=== PATIENT | male | born 1985 | race African-American/Black ===

== ENCOUNTER 2017-07-27 08:44 | Inpatient (IN) | payer OTHER ==
[2017-07-27 09:20] VITALS: BMI 23.7
--- NOTE | 2017-07-27 09:57 | HP ---
CIWA Score - CIWA Score Nausea/Vomitin Muscle Tremors: 3 Anxiety: 3 Agitation: 3 Paroxysmal Sweats: 2 Orientation: 0-Oriented Tacttile Disturbances: 2-Mild Itch/Numbness/Burn Auditory Disturbances: 2-Mild Harshness/Frighten Visual Disturbances: 2-Mild Sensitivity Headache: 2-Mild CIWA-Ar Total Score: 22 Admission ROS BHS - HPI Chief Complaint: I NEED HELP TO STOP DRINKING ALCOHOL Allergies/Adverse Reactions: Allergies Allergy/AdvReac Type Severity Reaction Status Date / Time iodine Allergy Severe Swelling Verified 07/27/17 09:26 shellfish derived Allergy Severe Difficulty Verified 07/27/17 09:26 Breathing History of Present Illness: THIS 32 YEARS OLD LACK MALE WITH ALCOHOL DEPENDENCE,SEEKING DETOX,WITHDRAWAL SYMPTOM,LAST DETOX 06/22/17 [facility] LOW BACK PAIN NICOTINE DEPENDENCE LONGEST PERIOD OF SOBRIETY 3 YEARS Exam Limitations: No Limitations - Ebola screening Have you traveled outside of the country in the last 21 days: No Have you been sick,other than usual withdrawal symptoms: No - Review of Systems Constitutional: Loss of Appetite, Malaise, Night Sweats, Changes in sleep, Weakness EENT: reports: Nose Congestion Respiratory: reports: No Symptoms reported Cardiac: reports: Palpitations GI: reports: Diarrhea, Nausea, Vomiting, Abdominal cramping : reports: No Symptoms Reported Musculoskeletal: reports: Back Pain, Muscle Pain Integumentary: reports: Dryness Neuro: reports: Headache, Tremors Endocrine: reports: No Symptoms Reported Hematology: reports: No Symptoms Reported Psychiatric: reports: No Sypmtoms Reported Patient History - Patient Medical History Hx Anemia: No Hx Asthma: No Hx Chronic Obstructive Pulmonary Disease (COPD): No Hx Cancer: No Hx Cardiac Disorders: No Hx Congestive Heart Failure: No Hx Hypertension: No Hx Hypercholesterolemia: No Hx Pacemaker: No HX Cerebrovascular Accident: No Hx Seizures: No Hx Dementia: No Hx Diabetes: No Hx Gastrointestinal Disorders: No Hx Liver Disease: No Hx Genitourinary Disorders: No Hx Sexually Transmitted Disorders: No Hx Renal Disease (ESRD): No Hx Thyroid Disease: No Hx Human Immunodeficiency Virus (HIV): No (LAST 2013 NEGATIVE) Hx Hepatitis C: No Hx Depression: No Hx Suicide Attempt: No Hx Bipolar Disorder: No Hx Schizophrenia: No Other Medical History: NO SUICIDAL,NO HOMICIDAL - Patient Surgical History Past Surgical History: No Hx Neurologic Surgery: No Hx Cataract Extraction: No Hx Cardiac Surgery: No Hx Lung Surgery: No Hx Breast Surgery: No Hx Breast Biopsy: No Hx Abdominal Surgery: No Hx Appendectomy: No Hx Cholecystectomy: No Hx Genitourinary Surgery: No Hx Section: No Hx Orthopedic Surgery: No Anesthesia Reaction: No - PPD History Previous Implant?: No Documented Results: Negative w/o proof Implanted On Prior [facility] Admission?: Yes Date: 02/09/15 Results: 0 mm PPD to be Administered?: Yes - Smoking Cessation Smoking history: Current every day smoker Have you smoked in the past 12 months: Yes Aproximately how many cigarettes per day: 10 Hx Chewing Tobacco Use: No Initiated information on smoking cessation: Yes 'Breaking Loose' booklet given: 07/27/17 - Substance & Tx. History Hx Alcohol Use: Yes Hx Substance Use: No Substance Use Type: Alcohol Hx Substance Use Treatment: Yes ([facility] [place] 06/22/17) - Substances Abused Alcohol Route: Oral Frequency: Daily Amount used: LIQUOR- 1.5 [place] Age of first use: 22 Date of Last Use: 07/27/17 Family Disease History - Family Disease History Family Disease History: Heart Disease: Father, Respiratory: Brother, Sister Admission Physical Exam BHS - Vital Signs Vital Signs: Vital Signs - 24 hr 07/27/17 09:15 Temperature 97 F L Pulse Rate 111 H Respiratory 20 Rate Blood Pressure 141/97 - Physical General Appearance: Yes: Moderate Distress, Tremorous, Irritable, Sweating, Anxious HEENTM: Yes: Normal ENT Inspection, MANNY, Pharynx Normal Respiratory: Yes: Lungs Clear, Normal Breath Sounds, No Respiratory Distress Neck: Yes: Within Normal Limits, Supple, Trachea in good position Breast: Yes: Within Normal Limits Cardiology: Yes: Within Normal Limits, Regular Rhythm, Regular Rate, S1, S2 Abdominal: Yes: Within Normal Limits, Normal Bowel Sounds, Non Tender, Flat, Soft Genitourinary: Yes: Within Normal Limits Back: Yes: Muscle Spasm Musculoskeletal: Yes: Back pain, Muscle Pain Extremities: Yes: Within Normal Limits, Normal Range of Motion, Tremors Neurological: Yes: dry cleaner helper II-XII NML intact, Fully Oriented, Alert, Motor Strength 5/5 Integumentary: Yes: Dry Lymphatic: Yes: Within Normal Limits - Diagnostic (1) Alcohol dependence with uncomplicated withdrawal Current Visit: Yes Status: Acute (2) Alcohol dependence with intoxication, uncomplicated Current Visit: Yes Status: Acute (3) Nicotine dependence Current Visit: No Status: Chronic Cleared for Admission [facility] - Detox or Rehab [facility] Level of Care: Medically Managed Detox Regimen/Protocol: Librium [facility] Breath Alcohol Content Breath Alcohol Content: 0.253 Urine Drug Screen - Results Drug Screen Negative: No Urine Drug Screen Results: TCA-Tricyclic Antidepress
[2017-07-27] MEDS ORDERED: MAGNESIUM HYDROX 2400MG/30ML ORAL SUSPENSION 30 ML CUP PO PRN (10:06)
[2017-07-27] MEDS ORDERED: guaiFENesin/D-METHORPHAN HB 10 ML UNIT-DOSE CUPS PO PRN (10:06)
[2017-07-27] MEDS ORDERED: LOPERAMIDE HCL 2 MG CAPSULE PO PRN (10:06)
[2017-07-27] MEDS ORDERED: MENTHOL/PHENOL 1 EACH UD MM PRN (10:06)
[2017-07-27] MEDS ORDERED: P-EPHED 60MG/TRIPROLIDI 2.5MG TABLET PO PRN (10:06)
[2017-07-27] MEDS ORDERED: MAG HYDROX/AL HYDROX/SIMETH 30 ML UNIT-DOSE CUP PO PRN (10:06)
[2017-07-27] MEDS ORDERED: chlordiazePOXIDE HCL 25 MG CAPSULE PO ONE (10:06)
[2017-07-27] MEDS ORDERED: MAGNESIUM CITRATE 300 ML BOTTLE PO PRN (10:06)
[2017-07-27] MEDS ORDERED: ACETAMINOPHEN 325 MG TABLET (FP) PO PRN (10:06)
[2017-07-27] MEDS ORDERED: chlordiazePOXIDE HCL 25 MG CAPSULE ONE (12:16)
[2017-07-27] MEDS: chlordiazePOXIDE HCL 25 MG CAPSULE PO SCH ×2 (17:23→22:07)
[2017-07-27 18:59] LABS: URINE APPEARANCE CLEAR; URINE BILIRUBIN NEGATIVE (NEGATIVE); URINE BLOOD NEGATIVE (NEGATIVE); URINE COLOR STRAW; URINE GLUCOSE (UA) NEGATIVE (NEGATIVE); URINE KETONE NEGATIVE (NEGATIVE); URINE LEUK ESTERASE NEGATIVE (NEGATIVE); URINE NITRITE NEGATIVE (NEGATIVE); URINE PROTEIN NEGATIVE (NEGATIVE); URINE UROBILINOGEN NEGATIVE mg/dL (0.2-1.0)
[2017-07-27] MEDS: THIAMINE HCL 100 MG TABLET (FP) PO SCH (22:07)
[2017-07-27] MEDS: NICOTINE POLACRILEX 2 MG GUM BUC PRN (22:28)
[2017-07-28] MEDS: chlordiazePOXIDE HCL 25 MG CAPSULE PO SCH ×4 (05:03→22:10)
[2017-07-28 10:08] LABS: HEMATOCRIT 47.3 % (35.4-49); HEMOGLOBIN 15.7 GM/dL (11.7-16.9); MCH 30.4 pg (25.7-33.7); MCHC 33.2 g/dl (32.0-35.9); MEAN CELL VOLUME 91.7 fl (80-96); MEAN PLT VOLUME 9.1 fl (7.5-11.1); PLATELET COUNT 186 K/MM3 (134-434); RBC 5.16 M/mm3 (4.00-5.60); RDW 17.1 % (11.9-15.9); WHITE BLOOD COUNT 4.7 K/mm3 (4.0-10.0)
[2017-07-28 10:16] LABS: ALBUMIN 3.7 g/dl (3.4-5.0); ANION GAP 7 (8-16); BLOOD UREA NITROGEN 8 mg/dL (7-18); CALCIUM 8.5 mg/dL (8.5-10.1); CHLORIDE 100 mmol/L (98-107); CO2 29 mmol/L (21-32); GLUCOSE,RANDOM 89 mg/dL (74-106); POTASSIUM 3.8 mmol/L (3.5-5.1); SODIUM 136 mmol/L (136-145)
[2017-07-28 10:19] LABS: ALK PHOS 82 U/L (45-117); CREATININE 0.8 mg/dL (0.7-1.3); SGOT/AST 80 U/L (15-37); SGPT/ALT 75 U/L (12-78); TOT PROT 7.4 g/dl (6.4-8.2)
[2017-07-28] MEDS: PRENATAL VITAMINS W/ FOLIC ACID TABLET (FP) PO SCH (10:22)
--- NOTE | 2017-07-28 11:32 | PN ---
S CIWA - CIWA Score Nausea/Vomitin-Mild Nausea/No Vomiting Muscle Tremors: 4-Moderate,w/Arms Extend Anxiety: 4-Mod. Anxious/Guarded Agitation: 4-Moderately Restless Paroxysmal Sweats: 1-Minimal Palms Moist Orientation: 0-Oriented Tacttile Disturbances: 2-Mild Itch/Numbness/Burn Auditory Disturbances: 0-None Visual Disturbances: 0-None Headache: 2-Mild CIWA-Ar Total Score: 18 BHS Progress Note (SOAP) Subjective: sweat tremor irritable anxiety reports chest 610 immobile sharp to dull pain on and off x 6 + months, follow up with primary care physician, taking unknown medication during the chest pain "some kind of muscle relaxant" patient reports the pain is no longer exist after swallowed the AM medications, patient wants to sleep and exempts from community meeting and today's activities Objective: 07/28/17 11:30 Vital Signs Temperature 97.2 F L 07/28/17 10:43 Pulse Rate 113 H 07/28/17 10:43 Respiratory Rate 18 07/28/17 10:43 Blood Pressure 149/98 07/28/17 10:43 O2 Sat by Pulse Oximetry (%) Laboratory Last Values WBC 4.7 K/mm3 (4.0-10.0) 07/28/17 07:00 RBC 5.16 M/mm3 (4.00-5.60) 07/28/17 07:00 Hgb 15.7 GM/dL (11.7-16.9) 07/28/17 07:00 Hct 47.3 % (35.4-49) 07/28/17 07:00 MCV 91.7 fl (80-96) 07/28/17 07:00 MCH 30.4 pg (25.7-33.7) 07/28/17 07:00 MCHC 33.2 g/dl (32.0-35.9) 07/28/17 07:00 RDW 17.1 % (11.9-15.9) H D 07/28/17 07:00 Plt Count 186 K/MM3 (134-434) D 07/28/17 07:00 MPV 9.1 fl (7.5-11.1) 07/28/17 07:00 Sodium 136 mmol/L (136-145) 07/28/17 07:00 Potassium 3.8 mmol/L (3.5-5.1) 07/28/17 07:00 Chloride 100 mmol/L (98-107) 07/28/17 07:00 Carbon Dioxide 29 mmol/L (21-32) 07/28/17 07:00 Anion Gap 7 (8-16) L 07/28/17 07:00 BUN 8 mg/dL (7-18) D 07/28/17 07:00 Creatinine 0.8 mg/dL (0.7-1.3) D 07/28/17 07:00 Creat Clearance w eGFR > 60 (>60) 07/28/17 07:00 Random Glucose 89 mg/dL (74-106) 07/28/17 07:00 Calcium 8.5 mg/dL (8.5-10.1) 07/28/17 07:00 Total Bilirubin 1.0 mg/dL (0.2-1.0) D 07/28/17 07:00 AST 80 U/L (15-37) H 07/28/17 07:00 ALT 75 U/L (12-78) 07/28/17 07:00 Alkaline Phosphatase 82 U/L (45-117) 07/28/17 07:00 Total Protein 7.4 g/dl (6.4-8.2) 07/28/17 07:00 Albumin 3.7 g/dl (3.4-5.0) 07/28/17 07:00 Urine Color Straw 07/27/17 12:44 Urine Appearance Clear 07/27/17 12:44 Urine pH 7.0 (5.0-8.0) D 07/27/17 12:44 Ur Specific [place] 1.005 (1.001-1.035) 07/27/17 12:44 Urine Protein Negative (NEGATIVE) 07/27/17 12:44 Urine Glucose (UA) Negative (NEGATIVE) 07/27/17 12:44 Urine Ketones Negative (NEGATIVE) 07/27/17 12:44 Urine Blood Negative (NEGATIVE) 07/27/17 12:44 Urine Nitrite Negative (NEGATIVE) 07/27/17 12:44 Urine Bilirubin Negative (NEGATIVE) 07/27/17 12:44 Urine Urobilinogen Negative mg/dL (0.2-1.0) 07/27/17 12:44 Ur Leukocyte Esterase Negative (NEGATIVE) 07/27/17 12:44 lab noted patient is alert oriented x 3 speech clearly, skin warm dry no shortness of breath cardiac S1 S2 pulmonary clear bilaterally, abdomen soft non tender, denies constipation denies diarrhea, peripheral pulses +2 x 4 extremities, 07/28/17 11:34 ekg no significant change Assessment: 07/28/17 11:33 withdrawal sx 07/28/17 11:33 32 years old male admitted [facility] for alcohol detox, chest pain x 6+ months released by "muscle relaxant" rule out muscular skeletal pain 07/28/17 11:39 Plan: continue detox patient denies pain 0/10 after AM medications administered at the bed side patient requests resting on bed continue monitoring
[2017-07-28] MEDS: THIAMINE HCL 100 MG TABLET (FP) PO SCH (22:10)
[2017-07-28] MEDS: NICOTINE POLACRILEX 2 MG GUM BUC PRN (23:15)
--- NOTE | 2017-07-28 23:34 | EKG ---
Test Reason : Blood Pressure : / mmHG Vent. Rate : 095 BPM Atrial Rate : 095 BPM P-R Int : 138 ms QRS Dur : 076 ms QT Int : 338 ms P-R-T Axes : 061 031 029 degrees QTc Int : 424 ms NORMAL SINUS RHYTHM NONSPECIFIC T WAVE ABNORMALITY ABNORMAL ECG NO PREVIOUS ECGS AVAILABLE Confirmed by CHRISS DECKER, JOSELINE ([id number]) on 07/28/2017 11:33:32 PM Referred By: Daniel Perera Confirmed By:JOSELINE BANERJEE MD
[2017-07-29] MEDS: chlordiazePOXIDE HCL 25 MG CAPSULE PO SCH ×2 (05:28→10:13)
[2017-07-29] MEDS: PRENATAL VITAMINS W/ FOLIC ACID TABLET (FP) PO SCH (10:13)
[2017-07-29] MEDS: IBUPROFEN 400 MG TABLET (FP) PO PRN (10:16)
--- NOTE | 2017-07-29 10:46 | PN ---
[facility] CIWA - CIWA Score Nausea/Vomitin-Mild Nausea/No Vomiting Muscle Tremors: 4-Moderate,w/Arms Extend Anxiety: 3 Agitation: 4-Moderately Restless Paroxysmal Sweats: 1-Minimal Palms Moist Orientation: 0-Oriented Tacttile Disturbances: 1-Very Mild Itch/Numbness Auditory Disturbances: 0-None Visual Disturbances: 0-None Headache: 0-None Present CIWA-Ar Total Score: 14 BHS Progress Note (SOAP) Subjective: tremor sweat anxiousness mild nausea but able to tolerate food and fluid Objective: 07/29/17 10:48 Vital Signs Temperature 97.2 F L 07/29/17 10:32 Pulse Rate 102 H 07/29/17 10:32 Respiratory Rate 16 07/29/17 10:32 Blood Pressure 141/89 07/29/17 10:32 O2 Sat by Pulse Oximetry (%) Laboratory Last Values WBC 4.7 K/mm3 (4.0-10.0) 07/28/17 07:00 RBC 5.16 M/mm3 (4.00-5.60) 07/28/17 07:00 Hgb 15.7 GM/dL (11.7-16.9) 07/28/17 07:00 Hct 47.3 % (35.4-49) 07/28/17 07:00 MCV 91.7 fl (80-96) 07/28/17 07:00 MCH 30.4 pg (25.7-33.7) 07/28/17 07:00 MCHC 33.2 g/dl (32.0-35.9) 07/28/17 07:00 RDW 17.1 % (11.9-15.9) H D 07/28/17 07:00 Plt Count 186 K/MM3 (134-434) D 07/28/17 07:00 MPV 9.1 fl (7.5-11.1) 07/28/17 07:00 Sodium 136 mmol/L (136-145) 07/28/17 07:00 Potassium 3.8 mmol/L (3.5-5.1) 07/28/17 07:00 Chloride 100 mmol/L (98-107) 07/28/17 07:00 Carbon Dioxide 29 mmol/L (21-32) 07/28/17 07:00 Anion Gap 7 (8-16) L 07/28/17 07:00 BUN 8 mg/dL (7-18) D 07/28/17 07:00 Creatinine 0.8 mg/dL (0.7-1.3) D 07/28/17 07:00 Creat Clearance w eGFR > 60 (>60) 07/28/17 07:00 Random Glucose 89 mg/dL (74-106) 07/28/17 07:00 Calcium 8.5 mg/dL (8.5-10.1) 07/28/17 07:00 Total Bilirubin 1.0 mg/dL (0.2-1.0) D 07/28/17 07:00 AST 80 U/L (15-37) H 07/28/17 07:00 ALT 75 U/L (12-78) 07/28/17 07:00 Alkaline Phosphatase 82 U/L (45-117) 07/28/17 07:00 Total Protein 7.4 g/dl (6.4-8.2) 07/28/17 07:00 Albumin 3.7 g/dl (3.4-5.0) 07/28/17 07:00 Urine Color Straw 07/27/17 12:44 Urine Appearance Clear 07/27/17 12:44 Urine pH 7.0 (5.0-8.0) D 07/27/17 12:44 Ur Specific [place] 1.005 (1.001-1.035) 07/27/17 12:44 Urine Protein Negative (NEGATIVE) 07/27/17 12:44 Urine Glucose (UA) Negative (NEGATIVE) 07/27/17 12:44 Urine Ketones Negative (NEGATIVE) 07/27/17 12:44 Urine Blood Negative (NEGATIVE) 07/27/17 12:44 Urine Nitrite Negative (NEGATIVE) 07/27/17 12:44 Urine Bilirubin Negative (NEGATIVE) 07/27/17 12:44 Urine Urobilinogen Negative mg/dL (0.2-1.0) 07/27/17 12:44 Ur Leukocyte Esterase Negative (NEGATIVE) 07/27/17 12:44 RPR Titer Nonreactive (NONREACTIVE) 07/28/17 07:00 lab noted Assessment: 07/29/17 10:48 withdrawal sx Plan: continue detox
--- NOTE | 2017-07-29 14:01 | EKG ---
Test Reason : Blood Pressure : / mmHG Vent. Rate : 091 BPM Atrial Rate : 091 BPM P-R Int : 138 ms QRS Dur : 082 ms QT Int : 342 ms P-R-T Axes : 057 032 -33 degrees QTc Int : 420 ms NORMAL SINUS RHYTHM NONSPECIFIC T WAVE ABNORMALITY ABNORMAL ECG WHEN COMPARED WITH ECG OF 27-JUL-2017 12:23, NONSPECIFIC T WAVE ABNORMALITY, WORSE IN INFERIOR LEADS Confirmed by MD Yuli, Lewis ([id number]) on 07/29/2017 2:01:42 PM Referred By: Daniel Perera Confirmed By:Lewis Roldan MD
[2017-07-29] MEDS: chlordiazePOXIDE HCL 25 MG CAPSULE PO PRN (15:35)
[2017-07-29] MEDS: chlordiazePOXIDE 5 MG CAPSULE PO SCH ×2 (17:45→22:05)
[2017-07-29] MEDS: NICOTINE POLACRILEX 2 MG GUM BUC PRN (17:47)
[2017-07-29] MEDS: THIAMINE HCL 100 MG TABLET (FP) PO SCH (22:05)
[2017-07-30] MEDS: chlordiazePOXIDE HCL 25 MG CAPSULE PO PRN (02:00)
[2017-07-30] MEDS: chlordiazePOXIDE 5 MG CAPSULE PO SCH ×2 (05:04→10:09)
[2017-07-30] MEDS: PRENATAL VITAMINS W/ FOLIC ACID TABLET (FP) PO SCH (10:09)
[2017-07-30] MEDS: hydrOXYzine PAMOATE 50 MG CAPSULE (FP) PO PRN (11:50)
[2017-07-30] MEDS: IBUPROFEN 400 MG TABLET (FP) PO PRN (11:50)
--- NOTE | 2017-07-30 11:50 | PN ---
BHS Progress Note (SOAP) Subjective: mild alcohol withdrawal sx no tremor less sweat Objective: 07/30/17 11:59 Vital Signs Temperature 97.5 F L 07/30/17 10:26 Pulse Rate 101 H 07/30/17 10:26 Respiratory Rate 18 07/30/17 10:26 Blood Pressure 129/94 07/30/17 10:26 O2 Sat by Pulse Oximetry (%) Laboratory Last Values WBC 4.7 K/mm3 (4.0-10.0) 07/28/17 07:00 RBC 5.16 M/mm3 (4.00-5.60) 07/28/17 07:00 Hgb 15.7 GM/dL (11.7-16.9) 07/28/17 07:00 Hct 47.3 % (35.4-49) 07/28/17 07:00 MCV 91.7 fl (80-96) 07/28/17 07:00 MCH 30.4 pg (25.7-33.7) 07/28/17 07:00 MCHC 33.2 g/dl (32.0-35.9) 07/28/17 07:00 RDW 17.1 % (11.9-15.9) H D 07/28/17 07:00 Plt Count 186 K/MM3 (134-434) D 07/28/17 07:00 MPV 9.1 fl (7.5-11.1) 07/28/17 07:00 Sodium 136 mmol/L (136-145) 07/28/17 07:00 Potassium 3.8 mmol/L (3.5-5.1) 07/28/17 07:00 Chloride 100 mmol/L (98-107) 07/28/17 07:00 Carbon Dioxide 29 mmol/L (21-32) 07/28/17 07:00 Anion Gap 7 (8-16) L 07/28/17 07:00 BUN 8 mg/dL (7-18) D 07/28/17 07:00 Creatinine 0.8 mg/dL (0.7-1.3) D 07/28/17 07:00 Creat Clearance w eGFR > 60 (>60) 07/28/17 07:00 Random Glucose 89 mg/dL (74-106) 07/28/17 07:00 Calcium 8.5 mg/dL (8.5-10.1) 07/28/17 07:00 Total Bilirubin 1.0 mg/dL (0.2-1.0) D 07/28/17 07:00 AST 80 U/L (15-37) H 07/28/17 07:00 ALT 75 U/L (12-78) 07/28/17 07:00 Alkaline Phosphatase 82 U/L (45-117) 07/28/17 07:00 Total Protein 7.4 g/dl (6.4-8.2) 07/28/17 07:00 Albumin 3.7 g/dl (3.4-5.0) 07/28/17 07:00 Urine Color Straw 07/27/17 12:44 Urine Appearance Clear 07/27/17 12:44 Urine pH 7.0 (5.0-8.0) D 07/27/17 12:44 Ur Specific [place] 1.005 (1.001-1.035) 07/27/17 12:44 Urine Protein Negative (NEGATIVE) 07/27/17 12:44 Urine Glucose (UA) Negative (NEGATIVE) 07/27/17 12:44 Urine Ketones Negative (NEGATIVE) 07/27/17 12:44 Urine Blood Negative (NEGATIVE) 07/27/17 12:44 Urine Nitrite Negative (NEGATIVE) 07/27/17 12:44 Urine Bilirubin Negative (NEGATIVE) 07/27/17 12:44 Urine Urobilinogen Negative mg/dL (0.2-1.0) 07/27/17 12:44 Ur Leukocyte Esterase Negative (NEGATIVE) 07/27/17 12:44 RPR Titer Nonreactive (NONREACTIVE) 07/28/17 07:00 lab noted Assessment: 07/30/17 12:00 mild withdrawal sx Plan: medically supervised detox
[2017-07-30] MEDS: chlordiazePOXIDE HCL 10 MG CAPSULE PO SCH ×2 (17:51→22:26)
[2017-07-30] MEDS: THIAMINE HCL 100 MG TABLET (FP) PO SCH (22:26)
[2017-07-31] MEDS: hydrOXYzine PAMOATE 50 MG CAPSULE (FP) PO PRN (03:29)
[2017-07-31] MEDS: chlordiazePOXIDE HCL 10 MG CAPSULE PO SCH (06:02)
--- NOTE | 2017-07-31 08:47 | DS ---
[facility] Detox Discharge Summary Admission Date: 07/27/17 Discharge Date: 07/31/17 - History Present History: Alcohol Dependence - Physical Exam Results Vital Signs: Vital Signs Temperature 95.9 F L 07/31/17 06:00 Pulse Rate 91 H 07/31/17 06:00 Respiratory Rate 18 07/31/17 06:00 Blood Pressure 130/96 07/31/17 06:00 O2 Sat by Pulse Oximetry (%) Pertinent Admission Physical Exam Findings: withdrawal sx Vital Signs Temperature 95.9 F L 07/31/17 06:00 Pulse Rate 91 H 07/31/17 06:00 Respiratory Rate 18 07/31/17 06:00 Blood Pressure 130/96 07/31/17 06:00 O2 Sat by Pulse Oximetry (%) Laboratory Last Values WBC 4.7 K/mm3 (4.0-10.0) 07/28/17 07:00 RBC 5.16 M/mm3 (4.00-5.60) 07/28/17 07:00 Hgb 15.7 GM/dL (11.7-16.9) 07/28/17 07:00 Hct 47.3 % (35.4-49) 07/28/17 07:00 MCV 91.7 fl (80-96) 07/28/17 07:00 MCH 30.4 pg (25.7-33.7) 07/28/17 07:00 MCHC 33.2 g/dl (32.0-35.9) 07/28/17 07:00 RDW 17.1 % (11.9-15.9) H D 07/28/17 07:00 Plt Count 186 K/MM3 (134-434) D 07/28/17 07:00 MPV 9.1 fl (7.5-11.1) 07/28/17 07:00 Sodium 136 mmol/L (136-145) 07/28/17 07:00 Potassium 3.8 mmol/L (3.5-5.1) 07/28/17 07:00 Chloride 100 mmol/L (98-107) 07/28/17 07:00 Carbon Dioxide 29 mmol/L (21-32) 07/28/17 07:00 Anion Gap 7 (8-16) L 07/28/17 07:00 BUN 8 mg/dL (7-18) D 07/28/17 07:00 Creatinine 0.8 mg/dL (0.7-1.3) D 07/28/17 07:00 Creat Clearance w eGFR > 60 (>60) 07/28/17 07:00 Random Glucose 89 mg/dL (74-106) 07/28/17 07:00 Calcium 8.5 mg/dL (8.5-10.1) 07/28/17 07:00 Total Bilirubin 1.0 mg/dL (0.2-1.0) D 07/28/17 07:00 AST 80 U/L (15-37) H 07/28/17 07:00 ALT 75 U/L (12-78) 07/28/17 07:00 Alkaline Phosphatase 82 U/L (45-117) 07/28/17 07:00 Total Protein 7.4 g/dl (6.4-8.2) 07/28/17 07:00 Albumin 3.7 g/dl (3.4-5.0) 07/28/17 07:00 Urine Color Straw 07/27/17 12:44 Urine Appearance Clear 07/27/17 12:44 Urine pH 7.0 (5.0-8.0) D 07/27/17 12:44 Ur Specific [place] 1.005 (1.001-1.035) 07/27/17 12:44 Urine Protein Negative (NEGATIVE) 07/27/17 12:44 Urine Glucose (UA) Negative (NEGATIVE) 07/27/17 12:44 Urine Ketones Negative (NEGATIVE) 07/27/17 12:44 Urine Blood Negative (NEGATIVE) 07/27/17 12:44 Urine Nitrite Negative (NEGATIVE) 07/27/17 12:44 Urine Bilirubin Negative (NEGATIVE) 07/27/17 12:44 Urine Urobilinogen Negative mg/dL (0.2-1.0) 07/27/17 12:44 Ur Leukocyte Esterase Negative (NEGATIVE) 07/27/17 12:44 RPR Titer Nonreactive (NONREACTIVE) 07/28/17 07:00 lab noted - Treatment Hospital Course: Detox Protocol Followed, Detoxed Safely, Responded well, Discharged Condition Good, Rehab Referral Accepted Patient has Accepted a Rehab Referral to: [facility] - Medication Discharge Medications: Ambulatory Orders NK [No Known Home Medication] 01/02/14 - Diagnosis (1) Alcohol dependence with intoxication, uncomplicated Current Visit: Yes Status: Acute (2) Nicotine dependence Current Visit: Yes Status: Acute Qualifiers: Nicotine product type: cigarettes Substance use status: in withdrawal Qualified Code(s): F17.213 - Nicotine dependence, cigarettes, with withdrawal - AMA Did Patient Leave Against Medical Advice: No
[2017-07-31 11:35] VITALS: PULSE 99; TEMP 97.1
[2017-07-31 11:49] VITALS: BP 130/96
== END 2017-07-31 09:00 | disposition home or self-care (01) | DRG 775 ==
LOC: YASAS 08:44 → Y6N 10:30
PROVIDERS: ADMIT Internal Medicine; ATTEND Internal Medicine
PROC: HZ2ZZZZ Detoxification Services for Substance Abuse Treatment (ICD-10-PCS; principal; 2017-07-27)
DX: F10.230 Alcohol dependence with withdrawal, uncomplicated (principal); F17.210 Nicotine dependence, cigarettes, uncomplicated; Z59.0 Homelessness
CPT/HCPCS: 36415; 80053; 81003; 85027; 86593; 93005; 93010